=== PATIENT | female | born 1990 ===

== ENCOUNTER 2020-05-13 14:30 | Inpatient (IN) | payer OTHER ==
[~2020-05-13] VITALS: Ht 162.6 cm; Wt 74.4 kg
[2020-05-28] MEDS ORDERED: FE C PLUS TABL1 EACH PO (14:36)
[2020-05-28] MEDS ORDERED: PRENATABS RX T1 EACH PO (14:39)
[2020-05-28] MEDS ORDERED: VALTREX1000 MG PO (14:40)
== END 2020-05-30 19:50 | disposition home or self-care (01) | DRG 807 ==
LOC: LDR 05-28 14:27 → OB/GYN 05-29 11:52
PROVIDERS: ADMIT Obstetrics & Gynecology; ATTEND Obstetrics & Gynecology
PROC: 10E0XZZ Delivery of Products of Conception, External Approach (ICD-10-PCS; principal; 2020-05-28)
PROC: 4A1HXFZ Monitoring of Products of Conception, Cardiac Rhythm, External Approach (ICD-10-PCS; 2020-05-28)
DX: O80 Encounter for full-term uncomplicated delivery (principal); Z37.0 Single live birth; Z3A.40 40 weeks gestation of pregnancy; Z20.828 Contact with and (suspected) exposure to other viral communicable diseases

== ENCOUNTER 2020-05-25 11:24 | Outpatient (CLI) | payer OTHER | END 2020-05-25 13:11 | disposition home or self-care (01) | LOC: NST 11:24 | PROVIDERS: ATTEND Obstetrics & Gynecology Maternal & Fetal Medicine | DX: Z34.83 Encounter for supervision of other normal pregnancy, third trimester (principal) ==